=== PATIENT | female | born 1950 | race Caucasian/White ===

== ENCOUNTER 2021-05-25 10:18 | Day surgery (SDC) | payer OTHER ==
[~2021-05-25] VITALS: Ht 157.5 cm; Wt 63.2 kg
[~2021-05-25 10:18] MED LIST: Apple Cider Vi300 MG PO; BIOTIN5 MG PO; CYCL10 PO; ESTRADIOL1 M1 PO; FISH OIL 1,2001 EAC1 PO; GABA100 PO; LIDO700A20 TOP; MULTIPLE VITAM1 EACH PO; NORCO 7.5-3251 EAC1 PO; ROYAL JELLY PO; VITAMIN D-40010 MC1 PO; [UNRECOGNIZED DRUG - OTHER] PO
[2021-05-25] MEDS ORDERED: PROBIOTIC1 EA13 (10:48)
[2021-05-25] MEDS ORDERED: C-500500 M1 (10:48)
[2021-05-25] MEDS ORDERED: EZALLOR SPRINKL10 MG (10:50)
== END 2021-05-25 12:46 | disposition home or self-care (01) ==
LOC: ORSCSDS 10:18
PROVIDERS: Student in an Organized Health Care Education/Training Program
PROC: 0DBH8ZX Excision of Cecum, Via Natural or Artificial Opening Endoscopic, Diagnostic (ICD-10-PCS; principal; 2021-05-25 11:30)
DX: Z12.11 Encounter for screening for malignant neoplasm of colon (principal); D12.0 Benign neoplasm of cecum; K57.30 Diverticulosis of large intestine without perforation or abscess without bleeding
CPT/HCPCS: 88305; J2704; J7120

== ENCOUNTER 2024-08-27 08:35 | Emergency (ER) | payer OTHER ==
[~2024-08-27] VITALS: Ht 157.5 cm; Wt 65.8 kg
[~2024-08-27 08:35] MED LIST changes: +Alph-E-Mixed400 UNIT; +C-500500 M1; +CLIMARA1 EACH; +EZALLOR SPRINKL10 MG; +PROBIOTIC1 EA13; +[UNRECOGNIZED DRUG - OTHER]
[2024-08-27 09:10] VITALS: BP 156/114
[2024-08-27] MEDS ORDERED: PredniSONE 20 MG Tab PO ONE (12:15)
[2024-08-27] MEDS ORDERED: Diazepam 5 MG Tab PO ONE (12:15)
[2024-08-27] MEDS ORDERED: CYCL10 PO (12:29)
[2024-08-27] MEDS ORDERED: Norco 5-325 Ta1 EACH PO (12:29)
[2024-08-27] MEDS ORDERED: Robaxin750 MG PO (12:29)
[2024-08-27] MEDS ORDERED: Prednisone20 MG PO (12:29)
[2024-08-27] MEDS ORDERED: HYDROmorphone HCl/Pf 1MG SYR IM ONE (13:30)
== END 2024-08-27 13:57 | disposition home or self-care (01) ==
LOC: ER 08:35
DX: M54.31 Sciatica, right side (principal); E78.5 Hyperlipidemia, unspecified; F17.200 Nicotine dependence, unspecified, uncomplicated; Z79.899 Other long term (current) drug therapy
CPT/HCPCS: 72100; 73502; 96372; 99284-25; A9270; J1171; J7512